=== PATIENT | female | born 1980 | race Caucasian/White ===

== ENCOUNTER 2016-10-28 20:28 | Emergency (ER) | payer MEDICAID, OTHER ==
[2016-10-28 20:36] VITALS: RESP 16; TEMP 98.4; O2SAT 96
[2016-10-28] MEDS ORDERED: KETOROLAC 30 MG/1 ML SDV IVP ONE (21:17)
[2016-10-28] MEDS ORDERED: METOCLOPRAMIDE 10 MG/2 ML VIAL IVP ONE (21:17)
[2016-10-28] MEDS ORDERED: DEXAMETHASONE 10 MG/ML VIAL IVP ONE (21:17)
[2016-10-28] MEDS ORDERED: NS 1,000 ML IV ONE (21:17)
--- NOTE | 2016-10-28 21:19 | EDPHY ---
HPI/HX/ROS/PE/MDM Narrative: CHIEF COMPLAINT: Migraine, cough HISTORY OF PRESENT ILLNESS: This patient is a 36 year old female arriving with her daughter complaining of a migraine onset two days ago and productive cough over the last five months. She states she generally gets migraines about three times a year, but that they usually resolve within one day and this episode is much worse. She visited an urgent care yesterday around 20:00, and states that she was given Toradol, which did not relieve her headache. She states she has also tried Excedrin, Ibuprofen, and caffeine with no improvement in symptoms. She reports light and noise exacerbate her head pain. She states she "generally has a huge tolerance for pain" but has been "in tears". She describes her pain as localized mostly to the front of her head, "shooting" from her eyes to her cheeks, and occasionally through to to the back of her head. She endorses intermittent nausea, but not at this time. She denies numbness or paresthesias in her arms or legs. The patient is also concerned regarding a productive cough she reports has been ongoing for the last five months. She denies runny nose or congestion. She reports she smokes occasionally. No fever, chills, chest pain, shortness of breath, palpitations, vomiting, diarrhea, urinary complaints, lightheadedness. REVIEW OF SYSTEMS: Aside from elements discussed in the HPI, a comprehensive 10-point review of systems was reviewed and is negative. PAST MEDICAL HISTORY: Denies. SOCIAL HISTORY: Family member at bedside. VITAL SIGNS Reviewed by me. GENERAL: Well-developed, well-nourished, in no apparent distress, resting in a dark room. HEENT: Atraumatic. Tenderness across frontal sinuses and right maxillary sinus. Eyes: PERRL, EOMI, no nystagmus. No icterus. No injection. Mouth: Posterior erythema, no exudates. Neck: No meningitis. Nontender to palpation. No adenopathy. Negative Kernig's. Negative Brudzinski's. No meningismus. LUNGS: Clear to auscultation bilaterally, no wheezes, rhonchi or rales. CARDIAC: Regular rate and rhythm, no rubs, murmurs or gallops. ABDOMEN: Soft, nontender, nondistended, bowel sounds normal. BACK: No CVA tenderness. EXTREMITIES: No trauma. No edema. Range of motion is normal throughout NEURO: Alert and oriented, cranial nerves II through XII are intact. Motor strength 5 over 5 in all major muscle groups. Sensation intact to light touch. Normal gait. SKIN: Warm and dry, no rash. PSYCHIATRIC: Normal mentation, no agitation. Portions of this note were transcribed by a certified ophthalmic medical technician. I personally performed a history, physical exam, medical decision making, and confirmed accuracy of information the transcribed note. ED Course: This patient is a 36 year old female presenting with 2 day history of migraine and 5 month history of cough. She has a normal neurologic exam, clear lungs , but significant sinus tenderness to percussion. Plan for head CT to rule out acute processes. Plan to administer 10mg IV Decadron, 25mg IV Benadryl, 30mg IV Toradol, 10mg IV Reglan, and 1L IV NS for symptom relief. 21:[address] Doip, radiologist. Head CT negative. On re-examination she reports feeling much improved. Headache was gradual in onset, not thunderclap, I doubt subarachnoid hemorrhage. She has significantly improved with simple medications. Headache is similar to prior migraines however somewhat worse in intensity and longer in duration. The patient will be discharged home in good condition with prescriptions for Zofran and Hydrocodone for migraine and Albuterol HFA and Azithromycin to treat her cough. She will follow up with primary care or neurology as needed for continued management of symptoms. The patient is comfortable with this plan. MDM: After history was obtained, and the physical exam performed, a differential for headache was considered including, but not limited to, subarachnoid hemorrhage, migraine headache, tension headache and infectious causes such as meningitis, sinusitis, encephalitis. Differential diagnosis for the patient's cough was considered including but not limited to viral versus bacterial bronchitis, asthma, COPD, pulmonary emboli, upper respiratory infection, lower respiratory infection, and bronchospasm. - Data Points Imaging Results: Impression: 1. Normal CT brain without contrast. 2. No sinusitis. 3.Consider MRI of the brain without and with contrast enhancement, if there is continued clinical concern. Imaging: Discussed imaging studies w/ manual arts therapist Radiologist Medications Given: Discontinued Medications Hydrocodone Bitart/Acetaminophen (Pierson 5/325mg Prepack#6) 1 btl TAKEHOME EDNOW ONE Stop: 10/28/16 22:19 Last Admin: 10/28/16 22:26 Dose: 1 btl Albuterol Sulfate (Proventil Inh Prepack) 1 mdi TAKEHOME EDNOW ONE Stop: 10/28/16 22:19 Last Admin: 10/28/16 22:26 Dose: 1 mdi Dexamethasone (Decadron Injection) 10 mg IVP EDNOW ONE Stop: 10/28/16 21:18 Last Admin: 10/28/16 21:32 Dose: 10 mg Diphenhydramine HCl (Benadryl Injection) 25 mg IVP EDNOW ONE Stop: 10/28/16 21:18 Last Admin: 10/28/16 21:32 Dose: 25 mg Sodium Chloride (Ns) 1,000 mls @ 0 mls/hr IV ONCE ONE; Wide Open PRN Reason: Protocol Stop: 10/28/16 21:18 Last Admin: 10/28/16 21:31 Dose: 1,000 mls Ketorolac Tromethamine (Toradol) 30 mg IVP EDNOW ONE Stop: 10/28/16 21:18 Last Admin: 10/28/16 21:32 Dose: 30 mg Metoclopramide HCl (Reglan Injection) 10 mg IVP EDNOW ONE Stop: 10/28/16 21:18 Last Admin: 10/28/16 21:31 Dose: 10 mg Ondansetron HCl (Zofran Odt 4 Mg Prepack#2) 1 btl TAKEHOME EDNOW ONE Stop: 10/28/16 22:19 Last Admin: 10/28/16 22:25 Dose: 1 btl General Time Seen by Provider: 10/28/16 20:57 Initial Vital Signs: Initial Vital Signs Temperature (C) 36.9 C 10/28/16 20:31 Heart Rate 79 10/28/16 20:31 Respiratory Rate 16 10/28/16 20:31 Blood Pressure 122/71 H 10/28/16 20:31 O2 Sat (%) 96 10/28/16 20:31 O2 Delivery Mode Room Air Allergies/Adverse Reactions: No Known Allergies Allergy (Unverified 10/28/16 20:35) Home Medications: Medication Instructions Recorded AZITHROMYCIN [Z-PACK] 250 - 500 mg PO DAILY #6 tab 10/28/16 Albuterol Hfa Anes Only [Proair 2 puffs IH QID #1 mdi 10/28/16 Hfa Anes Only] Departure - Departure Disposition: Home, Routine, Self-Care Clinical Impression: Bronchitis Migraine Qualifiers: Migraine type: without aura Status migrainosus presence: without status migrainosus Intractability: not intractable Qualified Code(s): G43.009 - Migraine without aura, not intractable, without status migrainosus Condition: Good Instructions: Hydrocodone/Acetaminophen (By mouth), Albuterol (By breathing), Ondansetron (By mouth), Migraine Headache (ED) Additional Instructions: You been given a prepack of 6 hydrocodone tablets. You may take these as needed for any residual headache pain. You been given a prepack of Zofran. You may use this for any residual nausea and vomiting. You been given an albuterol meter dose inhaler. Please use the metered dose inhaler to help control your coughing and wheezing and shortness of breath. You been given a prescription of azithromycin. Please begin taking this as directed. Please follow up with her primary care physician as needed. Referrals: [facility] [Other] - As per Instructions Prescriptions: Albuterol Hfa Anes Only [Proair Hfa Anes Only] 2 puffs IH QID #1 mdi AZITHROMYCIN [Z-PACK] 250 - 500 mg PO DAILY #6 tab Report Scribed for: Jackie Up Report Scribed by: Karine Vick Date of Report: 10/28/16 Time of Report: 21:19
[2016-10-28] MEDS ORDERED: HYDROCOD/APAP 5/325 PREPACK#6 BTL TAKEHOME ONE (22:18)
[2016-10-28] MEDS ORDERED: ALBUTEROL INH PREPACK MDI TAKEHOME ONE (22:18)
[2016-10-28] MEDS ORDERED: ONDANSETRON 4MG PREPACK#2 BTL TAKEHOME ONE (22:18)
[2016-10-28 22:32] VITALS: BP 116/72; PULSE 68
== END 2016-10-28 22:32 | disposition home or self-care (01) ==
DX: G43.009 Migraine without aura, not intractable, without status migrainosus (principal); J20.9 Acute bronchitis, unspecified
CPT/HCPCS: 96374; J1200; J1885; J2765